=== PATIENT | male | born 1985 | race African-American/Black ===

== ENCOUNTER 2021-09-12 13:38 | Emergency (ER) | payer MEDICAID ==
[~2021-09-12] VITALS: Ht 182.9 cm; Wt 87.1 kg
[2021-09-12 13:49] VITALS: BP_SYST 120
--- NOTE | 2021-09-12 13:55 | NUR ---
Patient to ER bed 04 to gown for evaluation. Side rails up.
--- NOTE | 2021-09-12 14:05 | NUR ---
CHINA Estrada at bedside examining patient.
--- NOTE | 2021-09-12 14:30 | NUR ---
pt. here with c/o irritation to right eye, states was taking out his contact monday night and since then his right eye has been bithering him
[2021-09-12] MEDS ORDERED: GENTAMICIN SULFATE 0.3%, 3.5 GM EYE OINT. RIGHT EYE SCH (15:00)
[2021-09-12] MEDS ORDERED: GENT3.5O7 OP (15:02)
[2021-09-12] MEDS ORDERED: GENTAMICIN SULFATE 0.3%, 3.5 GM EYE OINT. RIGHT EYE ONE (15:15)
[2021-09-12] MEDS ORDERED: GENTAMICIN SULFATE 0.3% Non-Formulary OPHT. 5 ML DROPS OP ONE (15:27)
--- NOTE | 2021-09-12 15:43 | NUR ---
Dr. Joyner requested gentamycin ointment, not avaliable in pharmacy, waiting for alternative med., gentamicin solution was brought not given per Dr. Joyner
[2021-09-12 16:00] VITALS: BP_SYST 117
[2021-09-12] MEDS ORDERED: TOBRAMYCIN SULFATE 0.3% EYE DROPS 5 ML OP SCH (16:00)
--- NOTE | 2021-09-12 16:01 | NUR ---
Patient given written and verbal discharge instructions and verbalizes understanding. ER Dr. Joyner discussed with patient the results and treatment provided. Patient in stable condition. ID arm band removed. Rx of gentamicin given. Patient educated on pain management and to follow up with PMD. Pain Scale 0. Opportunity for questions provided and answered. Medication side effect fact sheet provided.
== END 2021-09-12 16:01 | disposition home or self-care (01) ==
LOC: SED 13:38
DX: H10.9 Unspecified conjunctivitis (principal)
CPT/HCPCS: 99283